=== PATIENT | female | born 1970 | race Caucasian/White ===

== ENCOUNTER 2017-06-20 20:27 | Emergency (ER) | payer OTHER ==
[~2017-06-20] VITALS: Ht 167.6 cm; Wt 83.5 kg
[~2017-06-20 20:27] MED LIST: AMBIEN10 MG; ATIVAN2 M1; BACLOFEN10 MG; CIPRO750 MG PO; CLONAZEPAM1 MG; DILANTIN100 MG PO; FOLIC ACID1 MG; GILTUSS TR TAB1 EACH PO; KEPPRA500 MG; MAALOX REGULAR600 MG PO; MEDROL4 MG PO; PEPCID20 MG PO; PERCOCET 5/321 UDTAB PO; PERCOCET 5/3251 TAB PO; RESTORIL30 M1; SEPTRA DS TABLE1 TAB PO; SEROQUEL300 MG; SEROQUEL400 MG; TRAZODONE HCL100 MG; TUSNEL CAPSULE1 CAP; TUSSI-PRES LIQ120 ML PO; ZITHROMAX TRI-500 MG PO
[2017-06-21] MEDS ORDERED: BACTRIM DS TAB1 EACH PO (02:56)
[2017-06-21] MEDS ORDERED: SKELAXIN800 MG PO (02:56)
[2017-06-21] MEDS ORDERED: ULTRACET PO (02:56)
== END 2017-06-21 03:20 | disposition home or self-care (01) ==
LOC: ER 20:27
DX: M79.1 Myalgia (principal); N39.0 Urinary tract infection, site not specified

== ENCOUNTER → 2017-06-25 | Emergency (ER) | payer OTHER ==
[~2017-06-25] VITALS: Ht 167.6 cm; Wt 83.5 kg
[~2017-06-25] MED LIST changes: +BACTRIM DS TAB1 EACH PO; +SKELAXIN800 MG PO; +ULTRACET PO; +VASOTEC5 MG
== END | disposition home or self-care (01) ==
LOC: ER 09:21
DX: S90.822A Blister (nonthermal), left foot, initial encounter (principal); M79.622 Pain in left upper arm; R60.0 Localized edema; I73.9 Peripheral vascular disease, unspecified; X58.XXXA Exposure to other specified factors, initial encounter; Y93.89 Activity, other specified; Y92.89 Other specified places as the place of occurrence of the external cause; Y99.8 Other external cause status

== ENCOUNTER → 2017-07-06 | Emergency (ER) | payer OTHER ==
[~2017-07-06] VITALS: Ht 167.6 cm; Wt 89.8 kg
== END | disposition left against medical advice (07) ==
LOC: ER 13:33
DX: Z53.20 Procedure and treatment not carried out because of patient's decision for unspecified reasons (principal)

== ENCOUNTER 2018-06-30 12:51 | Outpatient (CLI) | payer OTHER | END 2018-06-30 13:06 | disposition home or self-care (01) | LOC: LAB 12:51 | DX: D50.8 Other iron deficiency anemias (principal); I71.8 Aortic aneurysm of unspecified site, ruptured; E78.2 Mixed hyperlipidemia; R94.5 Abnormal results of liver function studies; N39.0 Urinary tract infection, site not specified; R19.5 Other fecal abnormalities ==

== ENCOUNTER → 2018-08-05 | Emergency (ER) | payer OTHER ==
[~2018-08-05] VITALS: Ht 167.6 cm; Wt 94.3 kg
[~2018-08-05] MED LIST changes: +METAXALONE800 MG; +PROTONIX40 MG PO; +REMERON30 MG PO; +SYNTHROID50 MCG; +TRAZODONE HCL150 MG PO; +VASOTEC20 M1 PO
== END | disposition home or self-care (01) ==
LOC: ER 08:05
DX: M54.5 Low back pain (principal)

== ENCOUNTER 2018-08-16 09:21 | Emergency (ER) | payer OTHER ==
[~2018-08-16] VITALS: Ht 167.6 cm; Wt 91.6 kg
[2018-08-16] MEDS ORDERED: CLONAZEPAM2 M1 PO (09:37)
[2018-08-16] MEDS ORDERED: RESTORIL30 M1 PO (09:37)
[2018-08-16] MEDS ORDERED: DALMANE30 MG PO (09:38)
== END 2018-08-16 13:59 | disposition home or self-care (01) ==
LOC: ER 09:21
DX: G40.802 Other epilepsy, not intractable, without status epilepticus (principal); R10.31 Right lower quadrant pain; N39.0 Urinary tract infection, site not specified

== ENCOUNTER 2018-08-25 07:43 | Outpatient (CLI) | payer OTHER ==
[~2018-08-25 07:43] MED LIST changes: +CLONAZEPAM2 M1 PO; +DALMANE30 MG PO; +RESTORIL30 M1 PO
== END 2018-08-25 08:38 | disposition home or self-care (01) ==
LOC: LAB 07:43
DX: M51.36 Other intervertebral disc degeneration, lumbar region (principal); M51.37 Other intervertebral disc degeneration, lumbosacral region; M79.2 Neuralgia and neuritis, unspecified; Z79.899 Other long term (current) drug therapy; B02.23 Postherpetic polyneuropathy; B96.89 Other specified bacterial agents as the cause of diseases classified elsewhere

== ENCOUNTER 2018-11-08 08:07 | Outpatient (CLI) | payer OTHER | END 2018-11-08 08:14 | disposition home or self-care (01) | LOC: LAB 08:07 | DX: M47.897 Other spondylosis, lumbosacral region (principal); Z01.818 Encounter for other preprocedural examination; M54.89 Other dorsalgia; M51.36 Other intervertebral disc degeneration, lumbar region; M02.2 Postimmunization arthropathy; M51.37 Other intervertebral disc degeneration, lumbosacral region; M79.2 Neuralgia and neuritis, unspecified; J43.0 Unilateral pulmonary emphysema [MacLeod's syndrome]; J45.998 Other asthma; B96.89 Other specified bacterial agents as the cause of diseases classified elsewhere ==

== ENCOUNTER → 2018-11-10 09:33 | Outpatient (CLI) | payer OTHER | END | disposition home or self-care (01) | LOC: EKG 09:33 | DX: J45.909 Unspecified asthma, uncomplicated (principal); Z01.810 Encounter for preprocedural cardiovascular examination ==

== ENCOUNTER 2018-11-12 06:51 | Day surgery (SDC) | payer OTHER | END 2018-11-12 13:20 | disposition home or self-care (01) | LOC: CIR.AMB 06:51 | DX: M47.897 Other spondylosis, lumbosacral region (principal); M51.37 Other intervertebral disc degeneration, lumbosacral region; M51.36 Other intervertebral disc degeneration, lumbar region ==

== ENCOUNTER 2018-12-01 10:28 | Outpatient (CLI) | payer OTHER | END 2018-12-01 10:47 | disposition home or self-care (01) | LOC: LAB 10:28 | DX: M51.37 Other intervertebral disc degeneration, lumbosacral region (principal); M51.36 Other intervertebral disc degeneration, lumbar region; Z01.818 Encounter for other preprocedural examination; M79.2 Neuralgia and neuritis, unspecified ==

== ENCOUNTER 2018-12-10 07:52 | Day surgery (SDC) | payer OTHER | END 2018-12-10 14:25 | disposition home or self-care (01) | LOC: CIR.AMB | DX: G90.522 Complex regional pain syndrome I of left lower limb (principal) ==

== ENCOUNTER → 2019-05-11 06:32 | Outpatient (CLI) | payer OTHER | END | disposition home or self-care (01) | LOC: LAB 06:32 | DX: D50.8 Other iron deficiency anemias (principal); E11.9 Type 2 diabetes mellitus without complications; E78.2 Mixed hyperlipidemia; E03.8 Other specified hypothyroidism; E55.9 Vitamin D deficiency, unspecified; N39.0 Urinary tract infection, site not specified; R19.5 Other fecal abnormalities ==

== ENCOUNTER 2019-06-22 07:41 | Outpatient (CLI) | payer OTHER | END 2019-06-22 15:00 | disposition home or self-care (01) | LOC: LAB 07:41 | DX: D50.0 Iron deficiency anemia secondary to blood loss (chronic) (principal); E11.9 Type 2 diabetes mellitus without complications; E78.2 Mixed hyperlipidemia; E03.8 Other specified hypothyroidism; E55.9 Vitamin D deficiency, unspecified; N39.0 Urinary tract infection, site not specified; R19.5 Other fecal abnormalities ==

== ENCOUNTER → 2020-03-14 09:44 | Outpatient (CLI) | payer OTHER | END | disposition home or self-care (01) | LOC: LAB 09:44 | PROVIDERS: ATTEND Internal Medicine | DX: E11.9 Type 2 diabetes mellitus without complications (principal); E78.2 Mixed hyperlipidemia; D50.0 Iron deficiency anemia secondary to blood loss (chronic); E03.8 Other specified hypothyroidism; E55.9 Vitamin D deficiency, unspecified; N39.0 Urinary tract infection, site not specified; G40.89 Other seizures; R19.5 Other fecal abnormalities ==

== ENCOUNTER 2021-02-11 14:05 | Outpatient (CLI) | payer OTHER | END 2021-02-11 14:15 | disposition home or self-care (01) | LOC: SONOGRAMA 14:05 | PROVIDERS: ATTEND Internal Medicine Endocrinology, Diabetes & Metabolism | DX: E04.8 Other specified nontoxic goiter (principal) ==

== ENCOUNTER → 2021-03-19 | Outpatient (CLI) | payer OTHER | END | disposition home or self-care (01) | LOC: NUCLEAR 07:37 | PROVIDERS: ATTEND Internal Medicine | DX: R07.89 Other chest pain (principal); I10 Essential (primary) hypertension; R00.2 Palpitations; R06.00 Dyspnea, unspecified; G47.33 Obstructive sleep apnea (adult) (pediatric) | CPT/HCPCS: 78452; 93017; A9500 ==

== ENCOUNTER 2022-01-31 15:59 | Inpatient (IN) | payer OTHER ==
[~2022-01-31] VITALS: Ht 167.6 cm; Wt 93.4 kg
[2022-01-31] MEDS ORDERED: VASOTEC (16:23)
[2022-01-31] MEDS ORDERED: PERCOSET (16:23)
[2022-01-31] MEDS ORDERED: NEURONTIN 400 MG (16:24)
[2022-01-31] MEDS ORDERED: BACLOFEN (16:25)
[2022-02-04] MEDS ORDERED: OXYC1TAB9 (08:14)
[2022-02-04] MEDS ORDERED: BACLOFEN10 MG (08:14)
[2022-02-04] MEDS ORDERED: GABAPENTIN400 MG (08:14)
[2022-02-04] MEDS ORDERED: ARIPIPRAZOLE10 MG (08:14)
[2022-02-04] MEDS ORDERED: VASOTEC10 MG (08:17)
[2022-02-07] MEDS ORDERED: LEVOFLOXACIN500 MG PO (18:12)
[2022-02-07] MEDS ORDERED: INTESTINEX680 M2 PO (18:12)
== END 2022-02-07 18:53 | disposition home or self-care (01) | DRG 603 ==
LOC: ER → MEDJ 02-01 13:18
PROVIDERS: ADMIT Internal Medicine; ATTEND Internal Medicine
PROC: 02HV33Z Insertion of Infusion Device into Superior Vena Cava, Percutaneous Approach (ICD-10-PCS; principal; 2022-02-03)
PROC: 8E0ZXY6 Isolation (ICD-10-PCS; 2022-02-03)
DX: L03.115 Cellulitis of right lower limb (principal); N39.0 Urinary tract infection, site not specified; Z16.12 Extended spectrum beta lactamase (ESBL) resistance; L03.116 Cellulitis of left lower limb; S90.822A Blister (nonthermal), left foot, initial encounter; S90.821A Blister (nonthermal), right foot, initial encounter; B35.3 Tinea pedis; M54.17 Radiculopathy, lumbosacral region; I12.9 Hypertensive chronic kidney disease with stage 1 through stage 4 chronic kidney disease, or unspecified chronic kidney disease; N18.30 Chronic kidney disease, stage 3 unspecified; G47.33 Obstructive sleep apnea (adult) (pediatric); B96.20 Unspecified Escherichia coli [E. coli] as the cause of diseases classified elsewhere; I73.9 Peripheral vascular disease, unspecified; F32.9 Major depressive disorder, single episode, unspecified; Z20.822 Contact with and (suspected) exposure to COVID-19; G89.29 Other chronic pain

== ENCOUNTER 2023-04-29 06:11 | Outpatient (CLI) | payer OTHER ==
[~2023-04-29 06:11] MED LIST changes: +ARIPIPRAZOLE10 MG; +BACLOFEN; +GABAPENTIN400 MG; +INTESTINEX680 M2 PO; +LEVOFLOXACIN500 MG PO; +NEURONTIN 400 MG; +OXYC1TAB9; +PERCOSET; +VASOTEC; +VASOTEC10 MG
[2023-04-29 08:24] LABS: PH,URINE 5.5 (5.0-8.0); URINE APPEARANCE Cloudy; URINE BILIRRUBIN Negative (NEGATIVE); URINE BLOOD Negative; URINE COLOR Yellow; URINE GLUCOSE Negative (NEGATIVE); URINE LEUKOCYTE Negative; URINE NITRATE Negative; URINE PROTEIN Negative (NEGATIVE); URINE UROBILINOGEN 0.2 E.U./dl
[2023-04-29 08:25] LABS: HEMATOCRIT 38.3 % (36.0-45.00); HEMOGLOBIN 12.6 g/dL (12.0-15.00); MEAN CELL VOLUME 83.1 fL (80.00-100.00); MEAN CORPUSCULAR HEMOGLOBIN 27.4 pg (27.00-32.0); RED BLOOD COUNT 4.61 M/uL (4.00-6.00); RED CELL DISTRIBUTION WIDTH 13.5 % (11.5-14.5)
[2023-04-29 08:28] LABS: URINE EPITHELIAL CELLS 194.1 uL (0.0-38.8); URINE RBC 15.2 uL (0.0-20.8); URINE WBC 79.9 uL (0.0-23.2)
[2023-04-29 08:50] LABS: PLATELET COUNT 281 K/uL (150-450)
[2023-04-29 09:17] LABS: ALBUMIN 3.8 gm/dL (3.4-5.0); BILIRUBIN TOTAL 0.32 mg/dL (0.3-1.2); CALCIUM 8.4 mg/dL (8.5-10.1); CHOL HDL RATIO 4.8 (0-5.0); CREATININE SERUM 1.02 mg/dL (0.55-1.02); GFR 56.69; GLOBULINA 3.2 G/DL (2.4-3.5); POTASSIUM 4.07 mEq/L (3.5-5.1)
== END 2023-04-29 08:13 | disposition home or self-care (01) ==
LOC: LAB 06:11
PROVIDERS: ATTEND Internal Medicine
DX: E11.9 Type 2 diabetes mellitus without complications (principal); E78.2 Mixed hyperlipidemia; N39.0 Urinary tract infection, site not specified; D50.8 Other iron deficiency anemias

== ENCOUNTER 2023-04-29 07:52 | Outpatient (CLI) | payer OTHER | END 2023-04-29 07:55 | disposition home or self-care (01) | LOC: MAMO-SONO 07:52 | DX: Z12.31 Encounter for screening mammogram for malignant neoplasm of breast (principal) ==

== ENCOUNTER 2023-08-17 11:19 | Emergency (ER) | payer OTHER ==
[~2023-08-17] VITALS: Ht 170.2 cm; Wt 99.8 kg
[2023-08-17] MEDS ORDERED: MEPERIDINE HCL/PF 25 MG/ML VIAL IM STA (14:43)
[2023-08-17] MEDS ORDERED: PROMETHAZINE HCL 25 MG/ML AMPUL IM STA (14:43)
== END 2023-08-17 16:25 | disposition home or self-care (01) ==
LOC: ER 11:19
DX: M54.89 Other dorsalgia (principal); I10 Essential (primary) hypertension; Z88.6 Allergy status to analgesic agent; Z88.8 Allergy status to other drugs, medicaments and biological substances
CPT/HCPCS: 72100; 72220; 96372; 99284; J2250; J3490

== ENCOUNTER 2023-09-02 09:36 | Outpatient (CLI) | payer OTHER ==
[2023-09-02 11:11] LABS: HEMATOCRIT 40.2 % (36.0-45.00); HEMOGLOBIN 13.4 g/dL (12.0-15.00); MEAN CELL VOLUME 82.6 fL (80.00-100.00); MEAN CORPUSCULAR HEMOGLOBIN 27.5 pg (27.00-32.0); MEAN CORPUSCULAR HGB CONC 33.3 g/dl (32.0-36.0); PLATELET COUNT 261 K/uL (150-450); RED BLOOD COUNT 4.87 M/uL (4.00-6.00); RED CELL DISTRIBUTION WIDTH 13.6 % (11.5-14.5)
[2023-09-02 11:49] LABS: URINE APPEARANCE Clear; URINE BILIRRUBIN Negative (NEGATIVE); URINE BLOOD Trace; URINE COLOR Yellow; URINE GLUCOSE Negative (NEGATIVE); URINE LEUKOCYTE Negative; URINE NITRATE Negative; URINE PROTEIN Negative (NEGATIVE)
[2023-09-02 11:52] LABS: URINE BACTERIA 1495.5 uL (0.0-1933); URINE EPITHELIAL CELLS 58.2 uL (0.0-38.8); URINE RBC 14.2 uL (0.0-20.8); URINE WBC 29.6 uL (0.0-23.2)
[2023-09-02 12:06] LABS: ALBUMIN 3.9 gm/dL (3.4-5.0); BILIRUBIN TOTAL 0.35 mg/dL (0.3-1.2); CALCIUM 9.4 mg/dL (8.5-10.1); CREATININE SERUM 1.01 mg/dL (0.55-1.02); GFR 57.34; GLOBULINA 3.4 G/DL (2.4-3.5); POTASSIUM 4.25 mEq/L (3.5-5.1); T4 FREE 1.12 NG/ML (0.76-1.46); TOTAL PROTEIN 7.3 gm/dL (6.4-8.2); TSH 1.48 uIU/mL (0.358-3.74)
[2023-09-02 12:10] LABS: CHOL HDL RATIO 5.8 (0-5.0)
== END 2023-09-02 09:39 | disposition home or self-care (01) ==
LOC: LAB 09:36
PROVIDERS: ATTEND Internal Medicine
DX: E11.9 Type 2 diabetes mellitus without complications (principal); E78.2 Mixed hyperlipidemia; E03.9 Hypothyroidism, unspecified; E55.9 Vitamin D deficiency, unspecified; N39.0 Urinary tract infection, site not specified; R19.5 Other fecal abnormalities

== ENCOUNTER 2023-09-02 11:13 | Emergency (ER) | payer OTHER ==
[~2023-09-02] VITALS: Ht 167.6 cm; Wt 108.9 kg
[2023-09-02] MEDS ORDERED: DEXAMETHASONE SODIUM PHOSPHATE 4 MG/ML VIAL IV STA (13:28)
[2023-09-02] MEDS ORDERED: MEPERIDINE HCL/PF 50 MG/ML VIAL IM STA (13:30)
[2023-09-02] MEDS ORDERED: ONDANSETRON HCL 2 MG/ML VIAL IM STA (15:23)
== END 2023-09-02 15:48 | disposition home or self-care (01) ==
LOC: ER 11:14
DX: M54.17 Radiculopathy, lumbosacral region (principal); M19.90 Unspecified osteoarthritis, unspecified site; F32.89 Other specified depressive episodes; I10 Essential (primary) hypertension; Z88.6 Allergy status to analgesic agent; Z88.8 Allergy status to other drugs, medicaments and biological substances
CPT/HCPCS: 72100; 96365; 96372; 99283; J1100; J2405; J3490

== ENCOUNTER 2023-12-08 08:03 | Emergency (ER) | payer OTHER ==
[~2023-12-08] VITALS: Ht 167.6 cm; Wt 111.6 kg
[~2023-12-08 08:03] MED LIST changes: +AMBIEN5 MG PO; +BENZONATATE200 M1 PO; +FLEET BISACODYL5 MG PO; +GYNE-LOTRIMIN45 GM VAG; +INTESTINEX680 M1 PO; +NEURONTIN300 MG PO; +PEPCID AC20 MG PO; +RESTORIL15 MG PO; +TREANDA100 MG; +ZITHROMAX200 MG PO; +ZOCOR40 MG PO
[2023-12-08] MEDS ORDERED: VASOTEC10 MG PO (08:12)
[2023-12-08] MEDS ORDERED: HORIZANT600 MG PO (08:13)
[2023-12-08] MEDS ORDERED: RESTORIL30 M1 PO (08:14)
[2023-12-08] MEDS ORDERED: DEXAMETHASONE SODIUM PHOSPHATE 4 MG/ML VIAL IV STA (08:23)
[2023-12-08] MEDS ORDERED: ORPHENADRINE CITRATE 30 MG/ML AMPUL IV STA (08:23)
[2023-12-08 09:06] LABS: HEMATOCRIT 35.9 % (36.0-45.00); MEAN CELL VOLUME 84.6 fL (80.00-100.00); MEAN CORPUSCULAR HEMOGLOBIN 28.3 pg (27.00-32.0); MEAN CORPUSCULAR HGB CONC 33.4 g/dl (32.0-36.0); PLATELET COUNT 283 K/uL (150-450); RED BLOOD COUNT 4.24 M/uL (4.00-6.00); RED CELL DISTRIBUTION WIDTH 14.1 % (11.5-14.5)
[2023-12-08 09:40] LABS: ALBUMIN 3.2 gm/dL (3.4-5.0); BILIRUBIN TOTAL 0.35 mg/dL (0.3-1.2); BILIRUBIN,CONJUGATED 0.11 mg/dL (0.0-0.2); BILIRUBIN,UNCONJUGATED 0.24 mg/dL (0.0-0.6); CALCIUM 8.2 mg/dL (8.5-10.1); POTASSIUM 3.9 mEq/L (3.5-5.1); TOTAL PROTEIN 6.4 gm/dL (6.4-8.2)
[2023-12-08 10:04] LABS: URINE APPEARANCE Clear; URINE BILIRRUBIN Negative (NEGATIVE); URINE BLOOD Negative; URINE COLOR Yellow; URINE GLUCOSE Negative (NEGATIVE); URINE LEUKOCYTE Negative; URINE NITRATE Negative; URINE PROTEIN Negative (NEGATIVE)
[2023-12-08 10:09] LABS: URINE BACTERIA 335.1 uL (0.0-1933); URINE EPITHELIAL CELLS 23.1 uL (0.0-38.8); URINE RBC 6.2 uL (0.0-20.8); URINE WBC 2.1 uL (0.0-23.2)
[2023-12-08] MEDS ORDERED: ONDANSETRON HCL 2 MG/ML VIAL IV ONE (11:15)
[2023-12-08] MEDS ORDERED: GABAPENTIN 800 MG TABLET PO ONE (11:15)
[2023-12-08] MEDS ORDERED: MEPERIDINE HCL/PF 50 MG/ML VIAL IM STA (11:16)
[2023-12-08] MEDS ORDERED: MEPERIDINE HCL/PF 50 MG/ML VIAL IV ONE (11:45)
[2023-12-08] MEDS ORDERED: BUMETANIDE 0.5 MG TABLET PO STA (12:52)
== END 2023-12-08 13:45 | disposition home or self-care (01) ==
LOC: ER 08:03
PROVIDERS: General Practice
DX: M54.50 Low back pain, unspecified (principal); Z88.6 Allergy status to analgesic agent; I10 Essential (primary) hypertension; G40.89 Other seizures
CPT/HCPCS: 36415; 96365; J1100; J2360; J2405; J3490

== ENCOUNTER 2023-12-17 11:45 | Outpatient (CLI) | payer OTHER ==
[~2023-12-17 11:45] MED LIST changes: +HORIZANT600 MG PO; +VASOTEC10 MG PO
== END 2023-12-17 11:54 | disposition home or self-care (01) ==
LOC: RAD 11:45
PROVIDERS: ATTEND Orthopaedic Surgery
DX: M41.06 Infantile idiopathic scoliosis, lumbar region (principal)

== ENCOUNTER 2023-12-17 12:06 | Outpatient (CLI) | payer OTHER | END 2023-12-17 12:07 | disposition home or self-care (01) | LOC: NUCLEAR 12:06 | PROVIDERS: ATTEND Orthopaedic Surgery | DX: M81.0 Age-related osteoporosis without current pathological fracture (principal) ==

== ENCOUNTER 2023-12-23 11:40 | Emergency (ER) | payer OTHER ==
[~2023-12-23] VITALS: Ht 167.6 cm; Wt 111.1 kg
[2023-12-23] MEDS ORDERED: DEXAMETHASONE SODIUM PHOSPHATE 4 MG/ML VIAL IV STA (15:03)
[2023-12-23] MEDS ORDERED: MEPERIDINE HCL/PF 25 MG/ML VIAL IV STA (15:03)
[2023-12-23] MEDS ORDERED: PROMETHAZINE HCL 25 MG/ML AMPUL IM STA (15:05)
[2023-12-23 15:19] LABS: URINE APPEARANCE Cloudy; URINE BILIRRUBIN Negative (NEGATIVE); URINE BLOOD Negative; URINE COLOR Yellow; URINE GLUCOSE Negative (NEGATIVE); URINE LEUKOCYTE Negative; URINE NITRATE Negative; URINE PROTEIN Trace (NEGATIVE)
[2023-12-23 15:24] LABS: URINE BACTERIA 9628.7 uL (0.0-1933); URINE WBC 28.4 uL (0.0-23.2)
[2023-12-23] MEDS ORDERED: DEXAMETHASONE SODIUM PHOSPHATE 4 MG/ML VIAL ONE (15:34)
[2023-12-23] MEDS ORDERED: PROMETHAZINE HCL 25 MG/ML AMPUL ONE (15:34)
[2023-12-23 15:35] LABS: URINE EPITHELIAL CELLS > 201.7 uL (0.0-38.8)
[2023-12-23] MEDS ORDERED: BACTRIM DS TAB1 EACH PO (15:54)
== END 2023-12-23 16:02 | disposition home or self-care (01) ==
LOC: ER 11:41
PROVIDERS: Emergency Medicine
DX: M54.16 Radiculopathy, lumbar region (principal); M54.50 Low back pain, unspecified; N39.0 Urinary tract infection, site not specified; I10 Essential (primary) hypertension; Z88.5 Allergy status to narcotic agent; Z88.6 Allergy status to analgesic agent
CPT/HCPCS: 36415; 96365; 96372; 99282; J1100; J3490 ×2

== ENCOUNTER 2024-03-23 06:06 | Outpatient (CLI) | payer OTHER ==
[2024-03-23 06:46] LABS: PH,URINE 5.5 (5.0-8.0); URINE APPEARANCE Cloudy; URINE BILIRRUBIN Negative (NEGATIVE); URINE BLOOD Trace; URINE COLOR Yellow; URINE GLUCOSE Negative (NEGATIVE); URINE KETONE Negative (NEGATIVE); URINE LEUKOCYTE Moderate; URINE NITRATE Negative; URINE PROTEIN Negative (NEGATIVE)
[2024-03-23 06:47] LABS: HEMATOCRIT 37.1 % (36.0-45.00); HEMOGLOBIN 12.3 g/dL (12.0-15.00); MEAN CELL VOLUME 82.3 fL (80.00-100.00); MEAN CORPUSCULAR HEMOGLOBIN 27.4 pg (27.00-32.0); MEAN CORPUSCULAR HGB CONC 33.3 g/dl (32.0-36.0); PLATELET COUNT 328 K/uL (150-450); RED CELL DISTRIBUTION WIDTH 13.9 % (11.5-14.5); URINE BACTERIA 30.2 uL (0.0-1933); URINE EPITHELIAL CELLS 95.2 uL (0.0-38.8); URINE RBC 65.9 uL (0.0-20.8); URINE WBC 54.1 uL (0.0-23.2)
[2024-03-23 07:04] LABS: URINE CAST 1.37 uL (0.0-1.40)
[2024-03-23 07:05] LABS: URINE YEAST FEW /hpf
[2024-03-23 07:37] LABS: ALBUMIN 4.1 gm/dL (3.4-5.0); BILIRUBIN TOTAL 0.3 mg/dL (0.3-1.2); CALCIUM 9.1 mg/dL (8.5-10.1); CREATININE SERUM 1.24 mg/dL (0.55-1.02); GFR 45.08; GLOBULINA 3.2 G/DL (2.4-3.5); POTASSIUM 3.96 mEq/L (3.5-5.1); T4 FREE 1.14 NG/ML (0.76-1.46); TOTAL PROTEIN 7.3 gm/dL (6.4-8.2); TSH 1.59 uIU/mL (0.358-3.74)
[2024-03-23 07:38] LABS: CHOL HDL RATIO 5.9 (0-5.0)
== END 2024-03-23 06:07 | disposition home or self-care (01) ==
LOC: LAB 06:06
PROVIDERS: ATTEND Internal Medicine
DX: D50.0 Iron deficiency anemia secondary to blood loss (chronic) (principal); E11.9 Type 2 diabetes mellitus without complications; E78.2 Mixed hyperlipidemia; E03.9 Hypothyroidism, unspecified; E55.9 Vitamin D deficiency, unspecified; N39.0 Urinary tract infection, site not specified; R80.9 Proteinuria, unspecified

== ENCOUNTER 2024-04-20 10:18 | Emergency (ER) | payer OTHER ==
[~2024-04-20] VITALS: Ht 157.5 cm; Wt 68.0 kg
[2024-04-20] MEDS ORDERED: TRAZODONE HCL150 MG (10:42)
[2024-04-20] MEDS ORDERED: CLONAZEPAM2 M1 PO (10:42)
[2024-04-20] MEDS ORDERED: GRALISE600 MG (10:42)
[2024-04-20] MEDS ORDERED: PENTOXIFYLLINE400 MG PO (10:43)
[2024-04-20] MEDS ORDERED: ARIPIPRAZOLE OD15 MG (10:43)
[2024-04-20] MEDS ORDERED: OMEPRAZOLE-BIC1 EAC1 (10:44)
[2024-04-20] MEDS ORDERED: FENOFIBRATE50 MG (10:44)
[2024-04-20] MEDS ORDERED: TEMAZEPAM30 MG PO (10:44)
[2024-04-20] MEDS ORDERED: PEPCID AC20 MG (10:45)
[2024-04-20] MEDS ORDERED: SIMVASTATIN80 MG (10:45)
[2024-04-20] MEDS ORDERED: LEVETIRACETAM500 MG PO (10:45)
== END 2024-04-20 13:43 | disposition home or self-care (01) ==
LOC: ER 10:18
DX: L97.509 Non-pressure chronic ulcer of other part of unspecified foot with unspecified severity (principal); I10 Essential (primary) hypertension; E11.9 Type 2 diabetes mellitus without complications; Z88.6 Allergy status to analgesic agent

== ENCOUNTER → 2024-12-02 | Emergency (ER) | payer OTHER ==
[~2024-12-02] VITALS: Ht 162.6 cm; Wt 96.6 kg
[~2024-12-02] MED LIST changes: +ARIPIPRAZOLE OD15 MG; +AZITHROMYCIN 500 MG VIAL IV ONE; +FENOFIBRATE50 MG; +GRALISE600 MG; +GUAIFENESIN 200 MG/10 ML BLIST.PACK PO ONE; +LEVETIRACETAM500 MG PO; +OMEPRAZOLE-BIC1 EAC1; +PENTOXIFYLLINE400 MG PO; +PEPCID AC20 MG; +SIMVASTATIN80 MG; +TEMAZEPAM30 MG PO; +TRAZODONE HCL150 MG
[2024-12-02 10:02] LABS: BASO % 0.8 % (0.1-1.2); EOS # 0.34 (0.04-0.54); EOS % 4.0 % (0.7-7.0); LYMPH # 2.43 (1.18-3.74); LYMPH % 28.9 % (19.3-53.1); MEAN PLATELET VOLUME 9.80 fl (9.4-12.4); MONO # 0.71 (0.24-0.82); MONO % 8.5 % (4.7-12.5); NEUT # 4.83 (1.56-6.13); NEUT % 57.6 % (34.0-71.1); RED CELL DISTRIBUTION WIDTH 13.9 % (11.6-14.4)
[2024-12-02 11:40] LABS: COVID-19 AG NEGATIVE (NEGATIVE)
== END | disposition home or self-care (01) ==
LOC: ER 07:34
PROVIDERS: General Practice
DX: A49.3 Mycoplasma infection, unspecified site (principal); Z20.822 Contact with and (suspected) exposure to COVID-19; I10 Essential (primary) hypertension; Z88.5 Allergy status to narcotic agent; Z88.6 Allergy status to analgesic agent
CPT/HCPCS: 36415; 96365; 99282; J0456

== ENCOUNTER 2025-01-18 08:50 | Inpatient (IN) | payer OTHER ==
[~2025-01-18] VITALS: Ht 162.6 cm; Wt 96.6 kg
[~2025-01-18 08:50] MED LIST changes: -AZITHROMYCIN 500 MG VIAL IV ONE; -GUAIFENESIN 200 MG/10 ML BLIST.PACK PO ONE
[2025-01-18] MEDS ORDERED: FAMOtidine 10 MG/ML (4ML VIAL) IV ONE (09:15)
[2025-01-18] MEDS ORDERED: ONDANSETRON HCL 2 MG/ML VIAL IV ONE ×2 (09:15→13:45)
[2025-01-18] MEDS ORDERED: 0.9 % SODIUM CHLORIDE 1,000 ML IV ONE (09:15)
[2025-01-18] MEDS ORDERED: BENZONATATE 200 MG CAPSULE PO ONE (09:15)
[2025-01-18] MEDS ORDERED: LEVALBUTEROL HCL 1.25 MG/3 ML SOLUTION IH ONE (09:15)
[2025-01-18 10:30] LABS: BASO % 0.2 % (0.1-1.2); EOS # 0.12 (0.04-0.54); EOS % 1.0 % (0.7-7.0); LYMPH # 1.45 (1.18-3.74); LYMPH % 11.9 % (19.3-53.1); MEAN PLATELET VOLUME 9.70 fl (9.4-12.4); MONO # 0.68 (0.24-0.82); MONO % 5.6 % (4.7-12.5); NEUT # 9.79 (1.56-6.13); NEUT % 80.6 % (34.0-71.1); RED CELL DISTRIBUTION WIDTH 14.7 % (11.6-14.4)
[2025-01-18 10:52] LABS: ALT/SGPT 35.0 U/L (12-78); AST/SGOT 36.0 U/L (15-37); BILIRUBIN TOTAL 0.7 mg/dL (0.3-1.2); BUN CREA RATIO 10.0 (7.0-25.0); CREATININE SERUM 1.19 mg/dL (0.55-1.02); GFR 47.27; GLOBULINA 4.4 G/DL (2.4-3.5); GLUCOSE FASTING 139.0 mg/dL (65-100); OSMOLALITY SERUM 281.0 MOSM/KG (275-295)
[2025-01-18 10:59] LABS: COVID-19 AG NEGATIVE (NEGATIVE)
[2025-01-18] MEDS ORDERED: ORPHENADRINE CITRATE 30 MG/ML AMPUL IM ONE (12:00)
[2025-01-18] MEDS ORDERED: levoFLOXacin IN DEXTROSE 5 % 500MG/100ML PIGGYBAG IV ONE (13:45)
[2025-01-18] MEDS ORDERED: 0.9 % SODIUM CHLORIDE 1,000 ML IV SCH (18:45)
[2025-01-18] MEDS ORDERED: IPRATROPIUM BROMIDE 0.5 MG/2.5 ML AMPUL.NEB IH SCH (18:46)
[2025-01-18] MEDS ORDERED: GABAPENTIN 600 MG TABLET PO SCH (18:47)
[2025-01-18] MEDS ORDERED: CLONAZEPAM 1 MG TABLET PO SCH (18:48)
[2025-01-18] MEDS ORDERED: CEFTRIAXONE SODIUM 2,000 MG in 0.9 % SODIUM CHLORIDE 100 ML IV SCH (18:49)
[2025-01-18] MEDS ORDERED: GUAIFEN/DEXTROMETHORPHAN/PE 10 ML BLIST.PACK PO SCH (18:49)
[2025-01-18] MEDS ORDERED: ACETAMINOPHEN 500 MG GEL..CAP PO PRN (19:00)
[2025-01-18] MEDS ORDERED: MORPHINE SULFATE 4 MG/ML CARTRIDGE IV ONE (19:00)
[2025-01-18] MEDS ORDERED: METHYLPREDNISOLONE SOD SUCC 125 MG VIAL IV ONE (19:00)
[2025-01-18 20:16] LABS: ABG PH 7.427 (7.35-7.45); ABG PO2 72.5 mmHg (80-100); BICARBONATE 25.6 mmol/l (23-25); o2 21 %
[2025-01-18 22:41] VITALS: BP 114/71
[2025-01-18 23:49] VITALS: BP 123/86; O2SAT 100
[2025-01-19 08:51] VITALS: BP 116/79; O2SAT 97
[2025-01-19] MEDS ORDERED: AZITHROMYCIN 500 MG in DEXTROSE 5 % IN WATER 250 ML IV SCH (09:00)
[2025-01-19] MEDS ORDERED: LevETIRAcetam 500 MG TAB. PO SCH (09:00)
[2025-01-19] MEDS ORDERED: AZITHROMYCIN 500 MG VIAL IV SCH (09:00)
[2025-01-19] MEDS ORDERED: METHYLPREDNISOLONE SOD SUCC 40 MG VIAL IV SCH (12:00)
[2025-01-19 14:47] LABS: URINE APPEARANCE Clear; URINE BILIRRUBIN Negative (NEGATIVE); URINE BLOOD NHT; URINE COLOR Yellow; URINE GLUCOSE Negative (NEGATIVE); URINE KETONE Trace (NEGATIVE); URINE LEUKOCYTE Negative; URINE NITRATE Negative; URINE PROTEIN Trace (NEGATIVE); URINE UROBILINOGEN 1.0 E.U./dl
[2025-01-19 14:51] LABS: URINE BACTERIA 2369.6 uL (0.0-1933); URINE CAST 2.34 uL (0.0-1.40); URINE EPITHELIAL CELLS 58.2 uL (0.0-38.8); URINE RBC 120.1 uL (0.0-20.8); URINE WBC 8.4 uL (0.0-23.2)
[2025-01-19 16:50] VITALS: BP 107/74; O2SAT 92
[2025-01-19 16:56] LABS: INR 1.1
[2025-01-19] MEDS ORDERED: SIMVASTATIN 40 MG TABLET PO SCH (17:00)
[2025-01-19] MEDS ORDERED: TRAZODONE HCL 50 MG TABLET PO SCH (17:00)
[2025-01-19] MEDS ORDERED: METHYLPREDNISOLONE SOD SUCC 40 MG VIAL IV STA (20:29)
[2025-01-19] MEDS ORDERED: DIPHENHYDRAMINE HCL 50 MG/ML VIAL 1ML IV STA (20:29)
[2025-01-20 01:01] VITALS: BP 92/60; O2SAT 92
[2025-01-20 09:19] VITALS: BP 124/75; O2SAT 97
[2025-01-20] MEDS ORDERED: IPRATROPIUM/ALBUTEROL SULFATE 3 ML AMPUL.NEB IH SCH (13:00)
[2025-01-20] MEDS ORDERED: LACTOBACILLUS ACIDOPHILUS 1 CAP CAP PO SCH (14:45)
[2025-01-20] MEDS ORDERED: BUDESONIDE 0.5 MG/2 ML AMPUL.NEB IH SCH (17:00)
[2025-01-20] MEDS ORDERED: ONDANSETRON HCL 4 MG in DEXTROSE 5 % IN WATER 50 ML IV SCH (17:00)
[2025-01-20 17:44] VITALS: BP 118/81; O2SAT 96
[2025-01-20] MEDS ORDERED: TEMAZEPAM 15 MG CAPSULE PO SCH (21:00)
[2025-01-20] MEDS ORDERED: CLONAZEPAM 1 MG TABLET PO ONE (21:15)
[2025-01-21 02:00] VITALS: BP 106/71
[2025-01-21 09:06] VITALS: BP 106/70
[2025-01-21] MEDS ORDERED: DIPHENHYDRAMINE HCL 50 MG/ML VIAL 1ML IV STA (17:40)
[2025-01-21] MEDS ORDERED: METHYLPREDNISOLONE SOD SUCC 40 MG VIAL IV STA (17:41)
[2025-01-21 17:43] VITALS: BP 100/66; O2SAT 96
[2025-01-22 01:57] VITALS: BP 115/74; O2SAT 96
[2025-01-22 08:30] VITALS: BP 123/73; O2SAT 99
[2025-01-22 17:00] VITALS: BP 130/81; O2SAT 96
[2025-01-22] MEDS ORDERED: TEMAZEPAM 15 MG CAPSULE PO SCH (21:00)
[2025-01-23 02:05] VITALS: BP 106/64; O2SAT 97
[2025-01-23 09:44] VITALS: BP 122/81; O2SAT 94
[2025-01-23 11:04] LABS: ABG PH 7.410 (7.35-7.45); ABG PO2 75.6 mmHg (80-100); BICARBONATE 27.9 mmol/l (23-25); o2 21 %
[2025-01-23 16:20] VITALS: BP 127/81
[2025-01-23] MEDS ORDERED: BUDESONIDE0.5 MG/2 M IH (17:09)
[2025-01-23] MEDS ORDERED: IPRAT-ALBUT 0.5-3 ML IH (17:09)
== END 2025-01-23 18:23 | disposition home or self-care (01) | DRG 194 ==
LOC: ER 08:50 → MEDI 19:02 → MEDJ 19:02 → SEC-K 20:38 → MEDI 01-19 00:14 → MEDJ 01-19 01:10
PROVIDERS: General Practice; ADMIT Internal Medicine; ATTEND Internal Medicine
PROC: BB24ZZZ Computerized Tomography (CT Scan) of Bilateral Lungs (ICD-10-PCS; principal; 2025-01-18)
PROC: 02HV33Z Insertion of Infusion Device into Superior Vena Cava, Percutaneous Approach (ICD-10-PCS; 2025-01-19)
PROC: B548ZZA Ultrasonography of Superior Vena Cava, Guidance (ICD-10-PCS; 2025-01-19)
PROC: 3E0F7GC Introduction of Other Therapeutic Substance into Respiratory Tract, Via Natural or Artificial Opening (ICD-10-PCS; 2025-01-19)
DX: J15.7 Pneumonia due to Mycoplasma pneumoniae (principal); J45.21 Mild intermittent asthma with (acute) exacerbation; N17.9 Acute kidney failure, unspecified; J69.0 Pneumonitis due to inhalation of food and vomit; E86.0 Dehydration; K52.9 Noninfective gastroenteritis and colitis, unspecified; M79.7 Fibromyalgia; I12.9 Hypertensive chronic kidney disease with stage 1 through stage 4 chronic kidney disease, or unspecified chronic kidney disease; D63.1 Anemia in chronic kidney disease; N18.30 Chronic kidney disease, stage 3 unspecified; E66.812 Obesity, class 2; G47.33 Obstructive sleep apnea (adult) (pediatric); E03.9 Hypothyroidism, unspecified; Z88.6 Allergy status to analgesic agent; Z91.013 Allergy to seafood

== ENCOUNTER 2025-04-19 08:06 | Outpatient (CLI) | payer OTHER ==
[~2025-04-19 08:06] MED LIST changes: +BUDESONIDE0.5 MG/2 M IH; +IPRAT-ALBUT 0.5-3 ML IH
[2025-04-19 08:53] LABS: URINE APPEARANCE Clear; URINE BILIRRUBIN Negative (NEGATIVE); URINE BLOOD Small; URINE COLOR Yellow; URINE GLUCOSE Negative (NEGATIVE); URINE KETONE Negative (NEGATIVE); URINE LEUKOCYTE Trace; URINE NITRATE Negative; URINE PROTEIN Negative (NEGATIVE); URINE UROBILINOGEN 0.2 E.U./dl
[2025-04-19 08:56] LABS: URINE BACTERIA 1175.9 uL (0.0-1933); URINE EPITHELIAL CELLS 48.6 uL (0.0-38.8); URINE RBC 10.4 uL (0.0-20.8); URINE WBC 34.6 uL (0.0-23.2)
[2025-04-19 09:00] LABS: URINE CAST 0.00 uL (0.0-1.40)
[2025-04-19 09:14] LABS: BASO % 0.6 % (0.1-1.2); EOS # 0.25 (0.04-0.54); EOS % 2.6 % (0.7-7.0); LYMPH # 2.51 (1.18-3.74); LYMPH % 26.6 % (19.3-53.1); MEAN PLATELET VOLUME 10.60 fl (9.4-12.4); MONO # 0.67 (0.24-0.82); MONO % 7.1 % (4.7-12.5); NEUT # 5.93 (1.56-6.13); NEUT % 62.9 % (34.0-71.1); RED CELL DISTRIBUTION WIDTH 13.8 % (11.6-14.4)
[2025-04-19 09:35] LABS: ALT/SGPT 21.0 U/L (12-78); AST/SGOT 34.0 U/L (15-37); BILIRUBIN TOTAL 0.64 mg/dL (0.3-1.2); BUN CREA RATIO 12.0 (7.0-25.0); CHOL HDL RATIO 4.0 (0-5.0); CREATININE SERUM 0.82 mg/dL (0.55-1.02); GFR 72.38; GLOBULINA 3.2 G/DL (2.4-3.5); GLUCOSE FASTING 99.0 mg/dL (65-100); HDL 73.0 mg/dl (40-60); LDL 193.0 mg/dl (0-130); OSMOLALITY SERUM 284.0 MOSM/KG (275-295); VLDL 24.0 (0-39)
[2025-04-19 09:45] LABS: TSH 1.03 uIU/mL (0.358-3.74)
[2025-04-19 10:10] LABS: T4 FREE 1.27 NG/ML (0.76-1.46)
== END 2025-04-19 08:11 | disposition home or self-care (01) ==
LOC: LAB 08:06
PROVIDERS: ATTEND Internal Medicine
DX: D50.0 Iron deficiency anemia secondary to blood loss (chronic) (principal); E11.9 Type 2 diabetes mellitus without complications; E78.2 Mixed hyperlipidemia; E03.9 Hypothyroidism, unspecified; N39.0 Urinary tract infection, site not specified; R80.0 Isolated proteinuria

== ENCOUNTER 2025-05-10 12:27 | Inpatient (IN) | payer OTHER ==
[~2025-05-10] VITALS: Ht 165.1 cm; Wt 102.1 kg
--- NOTE | 2025-05-10 14:00 | NUR ---
SE RECIBE PACIENTE ALERTA Y ORIENTADA, [place] EN ORACIONES COMPLETA LA CUAL REFIERE VENIR A CAUSA DE QUE FONSECA PRESENTADO EPISODIOS DE CONVULSIONES, LA MISMA REFIERE PADECER DE EPILEPSIA. SE REALIZA EKG.
[2025-05-10] MEDS ORDERED: 0.9 % SODIUM CHLORIDE 500 ML IV ONE (15:00)
[2025-05-10] MEDS ORDERED: ONDANSETRON HCL 2 MG/ML VIAL IV ONE (15:00)
[2025-05-10] MEDS ORDERED: FAMOTIDINE/PF 20 MG/2 ML VIAL IV ONE (15:00)
[2025-05-10] MEDS ORDERED: MORPHINE SULFATE 4 MG/ML VIAL IV ONE (15:00)
[2025-05-10] MEDS ORDERED: ONDANSETRON HCL 2 MG/ML VIAL ONE (15:05)
[2025-05-10] MEDS ORDERED: FAMOTIDINE/PF 20 MG/2 ML VIAL ONE (15:06)
--- NOTE | 2025-05-10 18:51 | NUR ---
SE EDUCA ACERCA DE TX ORDENADO, SE CANALIZA Y COLECTAN MUESTRAS DE LABORATORIO MEDIANTE MEDIDAS ASEPTICAS. SE HANNAH ENVASE DE UA. SE ADMINISTRNA MEDICAMENTOS DANILO ORDEN MEDICA.
[2025-05-10 19:00] LABS: BASO % 0.6 % (0.1-1.2); EOS # 0.34 (0.04-0.54); EOS % 2.3 % (0.7-7.0); LYMPH # 5.74 (1.18-3.74); LYMPH % 38.7 % (19.3-53.1); MEAN PLATELET VOLUME 9.50 fl (9.4-12.4); MONO # 0.94 (0.24-0.82); MONO % 6.3 % (4.7-12.5); NEUT # 7.66 (1.56-6.13); NEUT % 51.7 % (34.0-71.1); RED CELL DISTRIBUTION WIDTH 13.9 % (11.6-14.4)
[2025-05-10 19:23] LABS: ALT/SGPT 31.0 U/L (12-78); AST/SGOT 18.0 U/L (15-37); BILIRUBIN TOTAL 0.39 mg/dL (0.3-1.2); BUN CREA RATIO 14.0 (7.0-25.0); CREATININE SERUM 0.84 mg/dL (0.55-1.02); GFR 70.39; GLOBULINA 3.0 G/DL (2.4-3.5); GLUCOSE FASTING 111.0 mg/dL (65-100); OSMOLALITY SERUM 284.0 MOSM/KG (275-295)
[2025-05-10 19:25] LABS: EOSINOPHIL MAN 1.0 %; INR 1.07; LYMPHOCYTE MAN 38.0 %; MONOCYTE MAN 5.0 %; NEUTROPHILS MAN 49.0 %
[2025-05-10 20:28] LABS: URINE APPEARANCE Clear; URINE BILIRRUBIN Negative (NEGATIVE); URINE BLOOD Moderate; URINE COLOR Yellow; URINE GLUCOSE Negative (NEGATIVE); URINE KETONE Negative (NEGATIVE); URINE LEUKOCYTE Trace; URINE NITRATE Negative; URINE PROTEIN Negative (NEGATIVE); URINE UROBILINOGEN 0.2 E.U./dl
[2025-05-10 20:32] LABS: URINE EPITHELIAL CELLS 82.0 uL (0.0-38.8); URINE RBC 15.0 uL (0.0-20.8)
[2025-05-10 21:19] LABS: URINE CAST 0.14 uL (0.0-1.40)
[2025-05-10 21:24] LABS: URINE MUCUS SCANT
[2025-05-10 21:25] LABS: TYPE CELLS SQUAMOUS; URINE WBC 225.2 uL (0.0-23.2)
[2025-05-10] MEDS ORDERED: CEFTRIAXONE SODIUM 2,000 MG VIAL ONE (21:50)
[2025-05-10] MEDS ORDERED: ONDANSETRON HCL 4 MG in 0.9 % SODIUM CHLORIDE 50 ML IV PRN (22:00)
[2025-05-10] MEDS ORDERED: FAMOTIDINE/PF 20 MG in 0.9 % SODIUM CHLORIDE 100 ML IV SCH (22:00)
[2025-05-10] MEDS ORDERED: CEFTRIAXONE SODIUM 2,000 MG in 0.9 % SODIUM CHLORIDE 100 ML IV SCH (22:00)
[2025-05-10] MEDS ORDERED: CEFTRIAXONE SODIUM 2,000 MG VIAL IV ONE (22:00)
[2025-05-10] MEDS ORDERED: DEXTROSE 50 % IN WATER 0.5 G/ML DISP.SYRIN IV PRN (22:00)
[2025-05-10] MEDS ORDERED: INSULIN LISPRO 1,000 UNIT/10 ML UNITS SUBCUTANEO PRN (22:00)
[2025-05-11 05:56] LABS: BASO % 0.6 % (0.1-1.2); EOS # 0.37 (0.04-0.54); EOS % 3.1 % (0.7-7.0); LYMPH # 4.60 (1.18-3.74); LYMPH % 38.2 % (19.3-53.1); MEAN PLATELET VOLUME 9.90 fl (9.4-12.4); MONO # 0.86 (0.24-0.82); MONO % 7.1 % (4.7-12.5); NEUT # 6.07 (1.56-6.13); NEUT % 50.4 % (34.0-71.1); RED CELL DISTRIBUTION WIDTH 14.1 % (11.6-14.4)
[2025-05-11 06:01] LABS: INR 1.06
[2025-05-11 06:02] LABS: BUN CREA RATIO 13.0 (7.0-25.0); CREATININE SERUM 0.78 mg/dL (0.55-1.02); GFR 76.68; GLUCOSE FASTING 101.0 mg/dL (65-100); OSMOLALITY SERUM 280.0 MOSM/KG (275-295)
[2025-05-11 06:30] VITALS: BP 124/78; O2SAT 98
[2025-05-11 08:00] VITALS: BP 107/70; O2SAT 99
[2025-05-11] MEDS ORDERED: PENTOXIFYLLINE 400 MG TABLET.SA PO SCH (18:00)
[2025-05-11] MEDS ORDERED: SIMVASTATIN 40 MG TABLET PO SCH (18:01)
[2025-05-11] MEDS ORDERED: GABAPENTIN 400 MG CAPSULE PO SCH (18:02)
[2025-05-11] MEDS ORDERED: CLONAZEPAM 1 MG TABLET PO SCH (18:03)
[2025-05-11] MEDS ORDERED: ENALAPRIL MALEATE 5 MG TABLET PO NR (18:15)
[2025-05-11] MEDS ORDERED: LIDOCAINE 1 EACH ADH..PATCH TOP NR (18:15)
[2025-05-11 18:26] VITALS: BP 145/78; O2SAT 97
[2025-05-11] MEDS ORDERED: GABAPENTIN 400 MG CAPSULE PO NR (19:30)
[2025-05-11] MEDS ORDERED: SIMVASTATIN 40 MG TABLET PO NR (19:30)
[2025-05-11] MEDS ORDERED: PENTOXIFYLLINE 400 MG TABLET.SA PO NR (19:30)
[2025-05-11] MEDS ORDERED: METHYLPREDNISOLONE SOD SUCC 40 MG VIAL IV SCH (20:36)
[2025-05-11] MEDS ORDERED: TEMAZEPAM 15 MG CAPSULE PO SCH (21:00)
[2025-05-12] VITALS: BP 101/64; O2SAT 91
[2025-05-12 08:00] VITALS: BP 115/65; O2SAT 98
[2025-05-12] MEDS ORDERED: ENALAPRIL MALEATE 5 MG TABLET PO SCH (09:00)
[2025-05-12] MEDS ORDERED: TRAZODONE HCL 50 MG TABLET PO SCH (09:00)
[2025-05-12] MEDS ORDERED: POTASSIUM CHLORIDE IN WATER 100 ML IV NR (10:00)
[2025-05-12] MEDS ORDERED: LevETIRAcetam 500 MG TAB. PO NR (12:00)
[2025-05-12] MEDS ORDERED: ORPHENADRINE CITRATE 30 MG/ML AMPUL IM NR (13:45)
[2025-05-12 17:00] VITALS: BP 118/77; O2SAT 95
[2025-05-12] MEDS ORDERED: SIMVASTATIN 40 MG TABLET PO SCH (17:00)
[2025-05-12] MEDS ORDERED: LIDOCAINE 1 EACH ADH..PATCH TOP SCH (17:00)
[2025-05-12] MEDS ORDERED: LACTOBACILLUS ACIDOPHILUS 1 CAP CAP PO SCH (17:00)
[2025-05-12] MEDS ORDERED: LevETIRAcetam 500 MG TAB. PO SCH (21:00)
[2025-05-12] MEDS ORDERED: ORPHENADRINE CITRATE 30 MG/ML AMPUL IM SCH (21:00)
[2025-05-13 01:47] VITALS: BP 105/61; O2SAT 97
[2025-05-13 08:33] VITALS: BP 105/75; O2SAT 94
[2025-05-13] MEDS ORDERED: TAMSULOSIN HCL 0.4 MG CAP PO SCH (21:00)
[2025-05-13] MEDS ORDERED: POLYETHYLENE GLYCOL 3350 17 GM BLIST.PACK PO SCH ×2 (21:00)
[2025-05-14 02:47] VITALS: BP 106/69; O2SAT 95
[2025-05-14 09:08] VITALS: BP 107/70; O2SAT 97
[2025-05-14] MEDS ORDERED: LACTULOSE 20 G/30 ML BLIST.PACK PO STA (12:40)
[2025-05-14 16:40] VITALS: BP 117/73; O2SAT 100
[2025-05-14] MEDS ORDERED: METHYLPREDNISOLONE SOD SUCC 40 MG VIAL IV SCH (21:00)
[2025-05-15 00:30] VITALS: BP 132/81; O2SAT 95
[2025-05-15 06:26] LABS: BASO % 0.1 % (0.1-1.2); EOS # 0.00 (0.04-0.54); EOS % 0.0 % (0.7-7.0); LYMPH # 1.36 (1.18-3.74); LYMPH % 14.6 % (19.3-53.1); MEAN PLATELET VOLUME 10.30 fl (9.4-12.4); MONO # 0.50 (0.24-0.82); MONO % 5.4 % (4.7-12.5); NEUT # 7.37 (1.56-6.13); NEUT % 79.1 % (34.0-71.1); RED CELL DISTRIBUTION WIDTH 13.7 % (11.6-14.4)
[2025-05-15 07:12] LABS: ALT/SGPT 21.0 U/L (12-78); AST/SGOT 12.0 U/L (15-37); BILIRUBIN TOTAL 0.2 mg/dL (0.3-1.2); BUN CREA RATIO 22.0 (7.0-25.0); CREATININE SERUM 0.99 mg/dL (0.55-1.02); GFR 58.23; GLOBULINA 3.0 G/DL (2.4-3.5); GLUCOSE FASTING 147.0 mg/dL (65-100); OSMOLALITY SERUM 285.0 MOSM/KG (275-295)
[2025-05-15 07:30] VITALS: BP 108/44; O2SAT 98
[2025-05-15] MEDS ORDERED: BISACODYL 5 MG TABLET.EC PO STA (10:01)
[2025-05-15 16:14] VITALS: BP 107/69; O2SAT 97
[2025-05-15] MEDS ORDERED: MINERAL OIL 30 ML BLIST.PACK PO STA (16:33)
[2025-05-15] MEDS ORDERED: LACTULOSE 20 G/30 ML BLIST.PACK PO STA (16:33)
[2025-05-15] MEDS ORDERED: MAGNESIUM HYDROXIDE 30 ML BLIST.PACK PO STA (16:34)
[2025-05-15] MEDS ORDERED: ORPHENADRINE CITRATE 30 MG/ML AMPUL IM SCH (21:00)
[2025-05-15 22:32] VITALS: BP 104/57
[2025-05-16 02:12] VITALS: BP 105/64; O2SAT 98
[2025-05-16 08:42] VITALS: BP 107/72; O2SAT 99
[2025-05-16] MEDS ORDERED: BISACODYL 5 MG TABLET.EC PO SCH ×2 (09:00)
[2025-05-16] MEDS ORDERED: CLOTRIMAZOLE/BETAMETHASONE DIP 15 GM TUBE TOP SCH (17:00)
[2025-05-16 20:22] VITALS: BP 105/64
[2025-05-17] MEDS ORDERED: METHYLPREDNISOLONE SOD SUCC 40 MG VIAL IV SCH (09:00)
[2025-05-17 11:19] VITALS: BP 93/55; O2SAT 97
[2025-05-17 19:49] VITALS: BP 90/57
[2025-05-17] MEDS ORDERED: TRAZODONE HCL 50 MG TABLET PO SCH (21:00)
[2025-05-18 03:05] VITALS: BP 90/62; O2SAT 96
[2025-05-18 09:05] VITALS: BP 90/54; O2SAT 98
[2025-05-18] MEDS ORDERED: DIATRIZOATE MEGLUMINE, SODIUM 30 ML BOTTLE PO NR (17:00)
[2025-05-18 19:10] VITALS: BP 100/62; O2SAT 100
[2025-05-19 03:33] VITALS: BP 90/60; O2SAT 96
[2025-05-19 09:13] VITALS: BP 97/56; O2SAT 98
[2025-05-19] MEDS ORDERED: FLEET BISACODYL5 MG PO (17:15)
[2025-05-19] MEDS ORDERED: LAMICTAL100 M1 PO (17:15)
[2025-05-19] MEDS ORDERED: POLY119PG PO (17:15)
[2025-05-19 18:45] VITALS: BP 120/80; O2SAT 96
== END 2025-05-19 21:03 | disposition home or self-care (01) | DRG 690 ==
LOC: ER 12:27 → SEC-K 21:58 → SURG 21:58 → SURH 05-12 20:37 → MEDI 05-15 16:20
PROVIDERS: General Practice; Internal Medicine Geriatric Medicine; ADMIT Internal Medicine; ATTEND Internal Medicine
PROC: BW28ZZZ Computerized Tomography (CT Scan) of Head (ICD-10-PCS; principal; 2025-05-10)
PROC: 02HV33Z Insertion of Infusion Device into Superior Vena Cava, Percutaneous Approach (ICD-10-PCS; 2025-05-12)
PROC: BR33ZZZ Magnetic Resonance Imaging (MRI) of Lumbar Disc(s) (ICD-10-PCS; 2025-05-15)
PROC: BW21ZZZ Computerized Tomography (CT Scan) of Abdomen and Pelvis (ICD-10-PCS; 2025-05-18)
DX: N39.0 Urinary tract infection, site not specified (principal); R56.9 Unspecified convulsions; E87.6 Hypokalemia; M54.59 Other low back pain; E78.49 Other hyperlipidemia; K21.9 Gastro-esophageal reflux disease without esophagitis; I10 Essential (primary) hypertension; E11.65 Type 2 diabetes mellitus with hyperglycemia; Z79.4 Long term (current) use of insulin; K59.09 Other constipation
CPT/HCPCS: 72148